=== PATIENT | female | born 1985 | race African-American/Black ===

== ENCOUNTER 2024-03-18 09:11 | Emergency (ER) | payer MEDICAID ==
[~2024-03-18] VITALS: Ht 162.6 cm; Wt 77.7 kg
[2024-03-18 09:44] VITALS: TEMP 98.3
[2024-03-18] MEDS: HYDROcodone-ACET 5/325MG TAB PO ONE (09:48)
--- NOTE | 2024-03-18 09:48 | ED.PDOC ---
HPI (NEURO) HPI Comments A 38 YEAR OLD FEMALE PRESENTS TO THE ED WITH COMPLAINT OF HEADACHE. PATIENT STATES SHE HAS BEEN EXPERIENCING A HEADACHE WITH LIGHT SENSITIVITY OFF AND ON FOR THE PAST 3 DAYS. PATIENT REPORTS SHE HAS TRIED [id number] PAIN MEDICATIONS IMPROVEMENT. PATIENT NOTES SHE HAS BEEN UNDER STRESS RECENTLY. PATIENT ALSO NOTES THAT SHE WAS RECENTLY DIAGNOSED WITH HYPERTENSION AND IS CURRENTLY TAKING AMLODIPINE AND HYDROCHLOROTHIAZIDE TO MANAGE HER BLOOD PRESSURE. PATIENT REPORTS SHE HAS A HISTORY OF MIGRAINE HEADACHES. PATIENT DENIES VISION CHANGES, SLURRED SPEECH, ONE-SIDED WEAKNESS, FACIAL DROOP, FEVER, CHILLS, SHORTNESS OF BREATH, CHEST PAIN, ABDOMINAL PAIN, NAUSEA, VOMITING, OR OTHER COMPLAINTS. NO OTHER SYMPTOMS OR MODIFYING FACTORS AT THIS TIME. PATIENT IS ALERT, ORIENTED X 4, AND HAS STEADY GAIT. Chief Complaint: Headache Time Seen by MD: 09:14 Reviewed Notes: Nurses Notes, Medications, Allergies Information Source: Patient Mode of Arrival: Ambulatory Severity: Mild, Moderate Headache Severity: Moderate Timing: Days Duration: Since onset, Intermittent, Days Prehospital treatment: None Headache Quality: Aching Headache Location: Generalized Onset: At rest Circumstances: Recent stress Symptoms: Other (HEADACHE) History of: None Modifying factors: Nothing Associated Signs and Symptoms: Headache Past Medical History PAST MEDICAL HISTORY: HTN Past Medical History (Other): MIGRAINE HEADACHES Surgical History: Denies all surgeries HEAD OPERATOR SULFIDE History: No Pertinent HEAD OPERATOR SULFIDE History Family History Family History: Reviewed,noncontributory to illness Social History Smoker: Non-Smoker Alcohol: Denies ETOH Use Drugs: Denies Drug Use Lives In: Home Constitutional: denies: chills, diaphoresis, fatigue, fever, malaise, sweats, weakness, others EENTM: reports: photophobia; denies: blurred vision, double vision, ear blee ding, ear discharge, ear drainage, ear pain, ear ringing, eye pain, eye redness, hearing loss, mouth pain, mouth swelling, nasal discharge, nose bleeding, nose congestion, nose pain, tearing, throat pain, throat swelling, voice changes, others Respiratory: denies: cough, hemoptysis, orthopnea, SOB at rest, shortness of breath, SOB with excertion, stridor, wheezing, others Cardiovascular: denies: chest pain, dizzy spells, diaphoresis, Dyspnea on exertion, edema, irregular heart beat, left arm pain, lightheadedness, palpitations, PND, syncope, others Gastrointestinal: denies: abdomen distended, abdominal pain, blood streaked bowels, constipated, diarrhea, dysphagia, difficulty swallowing, hematemesis, melena, nausea, poor appetite, poor fluid intake, rectal bleeding, rectal pain, vomiting, others Genitourinary: denies: abnormal vagina bleeding, burning, dyspareunia, dysuria, flank pain, frequency, hematuria, incontinence, pain, , vagina discharge, urgency, others Neurological: reports: headache; denies: dizziness, fainting, left sided numbness, left sided weakness, numbness, paresthesia, pre-existing deficit, right sided numbness, right sided weakness, seizure, speech problems, tingling, tremors, weakness, others Musculoskeletal: denies: back pain, gout, joint pain, joint swelling, muscle pain, muscle stiffness, neck pain, others Integumetry: denies: bruises, change in color, change in hair/nails, dryness, laceration, lesions, lumps, rash, wounds, others Allergic/Immunocompromised: denies: Difficulty Healing, Frequent Infections, Hives, Itching, others Hematologic/Lymphatic: denies: anemia, blood clots, easy bleeding, easy bruising, swollen glands, others Endocrine: denies: excessive hunger, excessive sweating, excessive thirst, excessive urination, flushing, intolerance to cold, intolerance to heat, unexplained weight gain, unexplained weight loss, others Psychiatric: denies: anxiety, bipolar disorder, depression, hopeless, panic disorder, schizophrenia, sleepless, suicidal, others All Other Systems: Reviewed and Negative Physical Exam General Appearance: No Apparent Distress, Normal, Other (ANXIOUS ) HEENT: Normal ENT Inspection, PERRL/EOMI, Pharynx Normal, TMs Normal Neck: Full Range of Motion, Non-Tender, Normal, Normal Inspection Respiratory: Chest Non-Tender, Lungs Clear, No Accessory Muscle Use, No Respiratory Distress, Normal Breath Sounds Cardiovascular: No Edema, No JVD, No Murmur, No Gallop, Normal Peripheral Pulses, Regular Rate/Rhythm Breast Exam: Deferred Gastrointestinal: No Organomegaly, Non Tender, No Pulsatile Mass, Normal Bowel Sounds, Soft Genitalia: Deferred Pelvic: Deferred Rectal: Deferred Extremities: No calf tenderness, Normal capillary refill, Normal inspection, Normal range of motion, Non-tender, No pedal edema Musculoskeletal : Apperance: Normal Neurologic: Alert, bog cutter II-XII nml as Tested, Headache, No Motor Deficits, Normal Affect, Normal Mood, No Sensory Deficits Cerebellar Function: Normal Reflexes: Normal Skin: Dry, Normal Color, Warm Peripheral Pulses: 2+ carotid (R), 2+ carotid (L) Lymphatic: No Adenopathy EKG EKG : Pulse Rate (adult): 70 Onia: Normal Cardiac Rhythm: NSR Block: None Hypertrophy: None ST: Normal Was a procedure done? Was a procedure done?: No Differential Diagnosis (SZ) Seizure: N/A General Weakness: N/A Headache: Cluster, Migraine, Intracerebral Hemorrhage, Subdural Hemorrhage, Sinusitis X-Ray, Labs, Meds, VS Vital Signs Date Time Temp Pulse Resp B/P (MAP) Pulse Ox O2 Delivery O2 Flow Rate FiO2 03/18/24 10:35 69 17 146/102 (117) 100 03/18/24 10:24 70 03/18/24 09:44 98.3 80 16 168/104 (125) 100 98.3 03/18/24 09:44 80 16 100 Room Air 03/18/24 09:26 70 03/18/24 09:23 98.3 72 16 153/104 (120) 98 Current Medications Medications (Trade) Dose Ordered Sig/Cam Route Start Time Stop Time Status Last Admin Acetaminophen/ Hydrocodone Bitart (Canones 5/325MG Tab) 1 tab ONCE ONCE PO 03/18/24 09:45 03/18/24 09:46 DC 03/18/24 09:48 EXAM: CT HEAD WITHOUT CONTRAST HISTORY: HEADACHE COMPARISON: None TECHNIQUE: Axial images were obtained and reformatted in coronal and sagittal planes. All CT scans at this medical facility are performed using dose modulation techniques as appropriate to a performed exam including the following: Automated exposure control was utilized; adjustment of the MA and/or KV according to patient size; and use of iterative reconstruction technique. CT Dose: CTDI volume is 51.95 mGy. Dose-length product is 729.03 mGy*cm FINDINGS: Supratentorial Region: No evidence for large acute territorial ischemia. No intracranial hemorrhage is noted. Posterior Fossa: No acute abnormality. Brainstem: Unremarkable. Sellar/Suprasellar Region: Unremarkable. Ventricles, Cisterns, Sulci: Age-appropriate. Orbits: Unremarkable. Paranasal Sinuses: Unremarkable. Mastoid Air Cells: Unremarkable. Vasculature: Unremarkable. Bones/Soft Tissues: No acute abnormality. Other: None. IMPRESSION: 1. No acute intracranial process. ATED BY: MACI HAMPTON MD DICTATED DATE/TIME: 03/18/24 1027 SIGNED BY: MACI HAMPTON MD SIGNED DATE/TIME: 03/18/24 1027 CC: X-Ray, Labs, Meds, VS Comment TREATMENT: NORCO 5/325 MG P.O. Images Reviewed?: Images reviewed and evaluated by me Time of 1ST Reevaluation: 10:50 Reevaluation 1ST: Improved Patient Education/Counseling: Diagnosis, Treatment, Need For Follow Up Family Education/Counseling: Diagnosis, Treatment, Need For Follow Up Medical Screening: No EMC Exist At This Time Departure 1 Departure Time of Disposition: 10:50 Impression: Primary Impression: Migraine headache without aura Qualified Codes: G43.009 - Migraine without aura, not intractable, without status migrainosus Additional Impression: Hypertension Qualified Codes: I10 - Essential (primary) hypertension Disposition: HOME / SELF CARE / HOMELESS Condition: Stable Additional Instructions: FOLLOW-UP WITH PCP IN 1 TO 2 DAYS. TAKE MEDICATIONS PRESCRIBED. RETURN TO ED FOR ANY NEW OR WORSENING SYMPTOMS. e-Prescriptions Qpveuufgka-Czekcjhjagqkn-Ahkkj (FIORICET TABLET) 1 Tab Tb 1 TAB PO TID, #14 TAB Prov: JENI BECKMAN 03/18/24 Discharged With: Self Critical Care Note Critical Care Time?: No Stability Stability form required: No I personally scribed for JENI BECKMAN ([email or web address]) on 03/18/24 at 09:48. Electronically submitted by Abhijeet Rizvi ([email or web address]). I personally scribed for JENI BECKMAN ([email or web address]) on 03/18/24 at 10:24. Electronically submitted by Abhijeet Rizvi ([email or web address]). I personally scribed for JENI BECKMAN ([email or web address]) on 03/18/24 at 10:31. Electronically submitted by Abhijeet Rizvi ([email or web address]). I personally scribed for JENI BECKMAN ([email or web address]) on 03/18/24 at 10:38. Electronically submitted by Abhijeet Rizvi ([email or web address]). JENI BECKMAN Mar 18, 2024 09:48
--- NOTE | 2024-03-18 10:29 | DVH ---
EXAM: CT HEAD WITHOUT CONTRAST HISTORY: HEADACHE COMPARISON: None TECHNIQUE: Axial images were obtained and reformatted in coronal and sagittal planes. All CT scans at this medical facility are performed using dose modulation techniques as appropriate t o a performed exam including the following: Automated exposure control was utilized; adjustment of th e MA and/or KV according to patient size; and use of iterative reconstruction technique. CT Dose: CTDI volume is 51.95 mGy. Dose-length product is 729.03 mGy*cm FINDINGS: Supratentorial Region: No evidence for large acute territorial ischemia. No intracranial hemorrhage is noted. Posterior Fossa: No acute abnormality. Brainstem: Unremarkable. Sellar/Suprasellar Region: Unremarkable. Ventricles, Cisterns, Sulci: Age-appropriate. Orbits: Unremarkable. Paranasal Sinuses: Unremarkable. Mastoid Air Cells: Unremarkable. Vasculature: Unremarkable. Bones/Soft Tissues: No acute abnormality. Other: None. IMPRESSION: 1. No acute intracranial process.
[2024-03-18 10:35] VITALS: BP 146/102; PULSE 69; RESP 17; O2SAT 100
[2024-03-18] MEDS ORDERED: SUMA50TA2 PO (10:38)
[2024-03-18] MEDS ORDERED: BUTA-259 PO (10:44)
--- NOTE | 2024-03-21 09:53 | ECG ---
[facility] Test Date: 2024-03-18 Test Time: 09:26:19 Pat Name: NORM GARCÍA Department: ER Room: Gender: F Technical Specialist Cytology: DAVID : 1985 Requested By: JENI BECKMAN Order Number: [id number] Reading MD: Measurements Intervals Lynn Rate: 70 P: 43 WV: 137 QRS: 39 QRSD: 89 T: 37 QT: 400 QTc: 432 Interpretive Statements Sinus rhythm Please click the below link to view image of tracing.
== END 2024-03-18 10:49 | disposition home or self-care (01) ==
LOC: ER 09:11
DX: G43.009 Migraine without aura, not intractable, without status migrainosus (principal); I10 Essential (primary) hypertension
CPT/HCPCS: 70450

== ENCOUNTER 2024-10-13 12:11 | Emergency (ER) | payer MEDICAID ==
[~2024-10-13] VITALS: Ht 162.6 cm; Wt 76.7 kg
[~2024-10-13 12:11] MED LIST: BUTA-259 PO
--- NOTE | 2024-10-13 12:57 | ED.PDOC ---
EAP CONSULTANT HPI Comments 39 y/o F, with PMHx of HTN and anemia presents to the ED for CC of abnormal vaginal bleeding. Patient states, that she is currently x1wurcg and has been having pink vaginal spotting x2days. Patient relays, slight abdominal cramping with no associated pain. Upon arrival to the ED, patient appears hypertensive with a blood pressure of 157/108mmHg patient endorses taking her blood pressure medication as indicated. No other symptoms or modifyers present at this time. Time Seen by MD: 12:45 Reviewed Notes: Nurses Notes, Medications, Allergies Allergies: Coded Allergies: NO KNOWN ALLERGIES (Unverified , 10/13/24) Home Meds Active Scripts Vqgklxzcbi-Oznrpdssjijbz-Kwplf (FIORICET TABLET) 1 Tab Tb, 1 TAB PO TID, #14 TAB Prov:JENI BECKMAN 03/18/24 Information Source: Patient Mode of Arrival: Ambulatory Timing: Days Prehospital treatment: None Severity: Moderate Vaginal Discharge: None Vaginal Lesions: None Vaginal Mass: None Onset Of Mass/Bleeding: Spontaneous Sexual Activity: Last Consensual [place]: Unknown Control: None History of: Current Blood Type: Unknown Symptoms of Possible : None Associated Signs and Symptoms: Vaginal Bleeding Past Medical History PAST MEDICAL HISTORY: Anemia, HTN Surgical History: Denies all surgeries QUARRY BOSS History: No Pertinent QUARRY BOSS History Family History Family History: Reviewed,noncontributory to illness Social History Smoker: Non-Smoker Alcohol: Denies ETOH Use Drugs: Denies Drug Use Lives In: Home Genitourinary: reports: abnormal vagina bleeding All Other Systems: Reviewed and Negative (as per hpi) Physical Exam General Appearance: No Apparent Distress, Normal HEENT: Normal ENT Inspection, Pharynx Normal Neck: Full Range of Motion, Non-Tender, Normal, Normal Inspection Respiratory: Chest Non-Tender, Lungs Clear, No Accessory Muscle Use, No Respiratory Distress, Normal Breath Sounds Cardiovascular: No Edema, No Murmur, No Gallop, Normal Peripheral Pulses, Regular Rate/Rhythm Breast Exam: Deferred Gastrointestinal: No Organomegaly, Non Tender, No Pulsatile Mass, Normal Bowel Sounds, Soft Genitalia: Deferred Pelvic: Deferred Rectal: Deferred Extremities: No calf tenderness, Normal capillary refill, Normal inspection, Normal range of motion, Non-tender, No pedal edema Musculoskeletal : Apperance: Normal Neurologic: Alert, plastic production machine setter II-XII nml as Tested, No Motor Deficits, Normal Affect, Normal Mood, No Sensory Deficits Cerebellar Function: Normal Reflexes: Normal Skin: Dry, Normal Color, Warm Lymphatic: No Adenopathy Was a procedure done? Was a procedure done?: No Differential Diagnosis (QUARRY BOSS) Vaginal Bleeding: - Inevitable, - Threatened, Menorrhagia, Menometrorrhagia, Menstrual Bleeding X-Ray, Labs, Meds, VS Vital Signs Date Time Temp Pulse Resp B/P (MAP) Pulse Ox O2 Delivery O2 Flow Rate FiO2 10/13/24 13:14 98.0 76 16 152/110 (124) 97 98.0 Lab Test 10/13/24 13:00 10/13/24 12:46 Range/Units White Blood Count 5.1 4.4-10.8 10^3/uL Red Blood Count 5.38 H 4.0-5.20 10^6/uL Hemoglobin 12.4 12.2-16.2 g/dL Hematocrit 38.1 36.0-46.0 % Mean Corpuscular Volume 70.9 L 80.0-100.0 fL Mean Corpuscular Hemoglobin 23.1 L 28.0-32.0 pg Mean Corpuscular Hemoglobin Concent 32.5 32.0-36.0 g/dL Red Cell Distribution Width 17.3 H 11.8-14.3 % Platelet Count 324 140-450 10^3/uL Mean Platelet Volume 8.4 6.9-10.8 fL Neutrophils (%) (Auto) 68.2 37.0-80.0 % Lymphocytes (%) (Auto) 23.0 10.0-50.0 % Monocytes (%) (Auto) 7.1 0.0-12.0 % Eosinophils (%) (Auto) 0.7 0.0-7.0 % Basophils (%) (Auto) 1.0 0.0-2.0 % Neutrophils # (Auto) 3.5 1.6-8.6 10 ^3/uL Lymphocytes # (Auto) 1.2 0.4-5.4 10 ^3/uL Monocytes # (Auto) 0.4 0-1.3 10 ^3/uL Eosinophils # (Auto) 0 0-0.8 10 ^3/uL Basophils # (Auto) 0 0-0.2 10 ^3/uL Nucleated Red Blood Cells 0.1 % Sodium Level 142 136-145 mmol/L Potassium Level 4.0 3.5-5.1 mmol/L Chloride Level 110 H 98-107 mmol/L Carbon Dioxide Level 26 20-31 mmol/L Anion Gap 6 5-15 Blood Urea Nitrogen 11 9-23 mg/dL Creatinine 0.89 0.550-1.02 mg/dL Glomerular Filtration Rate Calc 85 >90 mL/min BUN/Creatinine Ratio 12.4 10.0-20.0 Serum Glucose 95 74-106 mg/dL Calcium Level 9.8 8.7-10.4 mg/dL Beta HCG, Quantitative 1.2 L 1.5-4.2 mIU/mL Urine Color Light-yellow Yellow Urine Clarity Turbid H Clear Urine pH 6.5 5.0-9.0 Urine Specific [place] 1.021 1.001-1.035 Urine Protein Negative Negative Urine Ketones Negative Negative Urine Blood 3+ H Negative /uL Urine Nitrite Negative Negative Urine Bilirubin Negative Negative Urine Urobilinogen Normal Negative mg/dL Urine Leukocyte Esterase Negative Negative /uL Urine RBC 1 0 - 4 /hpf Urine Microscopic WBC 3 0-5 /HPF Urine Squamous Epithelial Cells Mod <5 /hpf Urine Bacteria None seen None Seen /hpf Urine Mucus Few None Seen Urine Glucose Normal Normal mg/dL Urine Test Negative Negative 31-year-old female presents here with vaginal bleeding. She has a proximally 4 weeks . She states she had a uterine test few days ago which is positive. She was able to show me. At this time her beta quant today is 1.2 and her urine test has returned normal. She states her vaginal bleeding has stopped now. She has no abdominal pain. Initially an ultrasound was done to order an ectopic however given that she is no longer it is not needed. At this time I will be discharging her home. She is Rh positive and does not require RhoGAM. At this time discharged her home advised to follow up with her OBGYN in 2-3 days and return to the ER if symptoms worsen or persist. Time of 1ST Reevaluation: 13:15 Reevaluation 1ST: Unchanged Patient Education/Counseling: Diagnosis, Treatment Family Education/Counseling: No Family Present Departure 1 Departure Time of Disposition: 15:29 Impression: Primary Impression: Incomplete Disposition: 01 HOME / SELF CARE / HOMELESS Condition: Stable Additional Instructions: Your beta quant today is 1.2. Urine test has returned negative. Please follow up with your OBGYN in 2-3 days. Return to the ER if symptoms worsen or persist. Discharged With: Self Critical Care Note Critical Care Time?: No Stability Stability form required: No Heart Score Heart Score: Heart Score Response (Comments) Value History N/A 0 EKG N/A 0 Age N/A 0 Risk Factors N/A 0 Troponin N/A 0 Total 0 I personally scribed for MAYRLU DERAS MD ([email or web address]) on 10/13/24 at 12:57. Electronically submitted by June Alvarez ([email or web address]). MARYLU DERAS MD Oct 13, 2024 12:57
[2024-10-13 13:11] LABS: Urine Bacteria None Seen /hpf (None Seen)
[2024-10-13 13:17] LABS: Eosinophils # (auto) 0 10 ^3/uL (0-0.8); Hemoglobin 12.4 g/dL (12.2-16.2); Monocytes # (auto) 0.4 10 ^3/uL (0-1.3); Nucleated Red Blood Cells % 0.1 %; Red Cell Distribution Width 17.3 % (11.8-14.3); White Blood Cell 5.1 10^3/uL (4.4-10.8)
[2024-10-13 13:20] LABS: Urine Blood 3+ /uL (Negative); Urine Clarity Turbid (Clear); Urine Color Light-Yellow (Yellow); Urine Mucus FEW (None Seen); Urine Protein, UAD Negative (Negative); Urine Specific Gravity 1.021 (1.001-1.035); Urine Squamous Epithelial Cell MOD /hpf (<5); Urine Urobilinogen Normal (Negative); Urine WBC 3 /HPF (0-5); Urine pH 6.5 (5.0-9.0)
[2024-10-13 13:21] LABS: Basophils # (auto) 0 10 ^3/uL (0-0.2); Eosinophils % (auto) 0.7 % (0.0-7.0); Hematocrit 38.1 % (36.0-46.0); Lymphocytes # (auto) 1.2 10 ^3/uL (0.4-5.4); Mean Corpuscular Hemoglobin 23.1 pg (28.0-32.0); Mean Corpuscular Hgb Conc. 32.5 g/dL (32.0-36.0); Mean Corpuscular Volume 70.9 fL (80.0-100.0); Monocytes % (auto) 7.1 % (0.0-12.0); Neutrophils # (auto) 3.5 10 ^3/uL (1.6-8.6); Neutrophils % (auto) 68.2 % (37.0-80.0); Platelet Count (auto) 324 10^3/uL (140-450); Red Blood Cells 5.38 10^6/uL (4.0-5.20)
[2024-10-13 13:26] LABS: Anion Gap 6 (5-15); Carbon Dioxide 26 mmol/L (20-31); Sodium 142 mmol/L (136-145)
[2024-10-13 13:27] LABS: Calcium 9.8 mg/dL (8.7-10.4)
[2024-10-13 13:29] LABS: Chloride 110 mmol/L (98-107)
[2024-10-13 13:32] LABS: BUN/Creatinine Ratio 12.4 (10.0-20.0); Blood Urea Nitrogen 11 mg/dL (9-23); Glucose 95 mg/dL (74-106)
[2024-10-13 15:43] VITALS: BP 146/95; PULSE 72; RESP 16; TEMP 98.5; O2SAT 97
== END 2024-10-13 15:47 | disposition home or self-care (01) ==
LOC: ER 12:20
DX: O03.4 Incomplete spontaneous abortion without complication (principal); O26.891 Other specified pregnancy related conditions, first trimester; R10.9 Unspecified abdominal pain; I10 Essential (primary) hypertension; D64.9 Anemia, unspecified
CPT/HCPCS: 36415; 80048; 81001; 81025; 84702; 85025; 86850; 86900; 86901